=== PATIENT | female | born 1980 | race Caucasian/White ===

== ENCOUNTER 2017-12-09 01:31 | Emergency (ER) | payer OTHER ==
[2017-12-09 01:36] VITALS: BP 126/83
--- NOTE | 2017-12-09 02:01 | EDPHY ---
H & P Stated Complaint: HAD A BUMP ON LIP=scratched at it now puffy Time Seen by Provider: 12/09/17 01:42 HPI/ROS: HPI The patient presents with lip swelling which has been present for the last several hours. Yesterday she had a small scratch on her lip and it was slightly swollen, however tonight it became worse. She has mildly allergic to her cat and wonders if this is what could have caused the reaction. She does not have any tongue swelling or difficulty swallowing or breathing. She does not have a rash anywhere else on her body. She does not have a fever.. REVIEW OF SYSTEMS 10 systems were reviewed and negative with the exception of the elements mentioned in the history of present illness. PMHx: Healthy Soc Hx: Lives alone PHYSICAL General Appearance: Alert, no distress Eyes: Pupils equal and round no pallor or injection ENT, Mouth: Right lower lip is edematous with small abrasion, oropharynx is unremarkable, tongue appears normal, Mucous membranes moist Respiratory: There are no retractions, lungs are clear to auscultation Cardiovascular: Regular rate and rhythm Gastrointestinal: Abdomen is soft and non-tender, no masses, bowel sounds normal Neurological: A&O, moves all extremities Skin: Warm and dry, no rashes Musculoskeletal: Neck is supple non tender Extremities: symmetrical, full range of motion Psychiatric: Patient is oriented X 3, there is no agitation Source: Patient Exam Limitations: No limitations - Personal History LMP (Females 10-55): 1-7 Days Ago Current Tetanus/Diphtheria Vaccine: Yes Current Tetanus Diphtheria and Acellular Pertussis (TDAP): Yes - Medical/Surgical History Hx Asthma: Yes Hx Chronic Respiratory Disease: No Hx Diabetes: No Hx Cardiac Disease: No Hx Renal Disease: No Hx Cirrhosis: No Hx Alcoholism: No Hx HIV/AIDS: No Hx Splenectomy or Spleen Trauma: No Other PMH: high cholesterol - Social History Smoking Status: Never smoked Constitutional: Initial Vital Signs Temperature (C) 36.9 C 12/09/17 01:34 Heart Rate 77 12/09/17 01:34 Respiratory Rate 18 12/09/17 01:34 Blood Pressure 126/83 H 12/09/17 01:34 O2 Sat (%) 96 12/09/17 01:34 O2 Delivery Mode Room Air Allergies/Adverse Reactions: cefaclor [From [facility] [place]] Allergy (Verified 12/09/17 01:37) Home Medications: Medication Instructions Recorded Hyoscyamine Sulfate [Levsin] 0.125 mg PO BID 12/09/17 Mometasone/Formoterol [Dulera 100 13 gm IH 12/09/17 Mcg/5 Mcg Inhaler] Ortho Tri-Cyclen 28 Tablet 12/09/17 busPIRone [Buspar (*)] 15 mg PO BID 12/09/17 Medical Decision Making Differential Diagnosis: 37-year-old female presents with right lower lip swelling for the last several hours. Appears to be angioedema which could be related to exposure from CT verses other. She does not have a family history of angioedema. She does not have any tongue involvement. I feel it is appropriate to treat her with Benadryl for now as her symptoms do not appear to be progressing. I have considered cellulitis, however without erythema or tenderness, this is unlikely. She will be discharged from the emergency department. - Data Points Medications Given: Discontinued Medications Diphenhydramine HCl (Benadryl) 25 mg PO EDNOW ONE Stop: 12/09/17 02:04 Last Admin: 12/09/17 02:12 Dose: 25 mg Departure - Departure Disposition: Home, Routine, Self-Care Clinical Impression: Angioedema Condition: Good Instructions: Angioedema (ED) Additional Instructions: Your lip is swelling because of an allergic reaction most likely. Because of this I would recommend you take Benadryl 25 mg every 6 hr until it is improved. You should return to the emergency department if you develop any swelling of your tongue or difficulty breathing. If Benadryl makes you to sleepy, you can take Claritin or Zyrtec instead. Please follow-up with your regular doctor in a few days unless your completely improved. Referrals: JUAN MANUEL ENCINAS [Other] - As per Instructions
[2017-12-09] MEDS ORDERED: diphenhydrAMINE 25 MG CAP PO ONE (02:03)
== END 2017-12-09 02:18 | disposition home or self-care (01) ==
DX: M79.89 Other specified soft tissue disorders (principal); T78.3XXA Angioneurotic edema, initial encounter; L23.81 Allergic contact dermatitis due to animal (cat) (dog) dander